=== PATIENT | female | born 1970 | race Two or more races ===

== ENCOUNTER 2024-09-19 10:09 | Outpatient (AMB) | payer OTHER, SELFPAY ==
--- NOTE | 2024-09-19 10:15 | A.OFFVIS_ITS ---
Vital Signs 09/19/24 10:23 Height 5 ft 4 in Weight 144 lb BMI 24.7 BP 140/80 H Blood Pressure Location Lt brachial Pulse 86 Pulse Source Pulse Oximeter Pulse Oximetry (%) 95 Oxygen Delivery Method Room Air Intake Visit Reasons: Arthritis Intake Note: patient presents today for arthritis. Allergies metoprolol Allergy (Mild, Verified 09/19/24 10:19) Hives Environmental Allergy (Mild, Uncoded 12/14/19 17:01) ASTHMA HPI HPI Arthritis: Details: [facility]. She did not follow up with another provider at [facility] after I changed practices and joined [facility]. She was a patient of Dr. Noam mitchell from [facility] who was on prednisone chronically with hydroxychloroquine. She was diagnosed with systemic lupus erythematosus couple of years ago presenting with joint pain with redness in her joints. At the time that I saw her she was on chronic prednisone 7.5 mg daily and reported that she was on prednisone for 5 years. She was also previously treated with prednisone 10 mg daily. She had reported that she had low blood counts in the past. She has history of Raynaud's phenomenon affecting her hands. She had an unprovoked PE in 2018. No history of miscarriages. She is off prednisone and HCQ. She is having pain in joints in hands, wrists, knees and toes. Loosing balance. She has dyspnea and chest pain for a few months. No fevers, pleurisy, rashes, oral ulcers +frothy urine with odour +dry mouth Fingers turn purple then black sometimes. She lays down and covers her self with blanket, which resolves the episode. [facility] Medical History (Updated 09/19/24 @ 11:49 by Paxton Bashir MD) Clavicle fracture Rib fracture Right wrist fracture IBS (irritable bowel syndrome) Fibromyalgia Short gut syndrome Cervical dysplasia Cervical osteoarthritis Restrictive lung disease Pulmonary embolism Recurrent kidney stones Klebsiella pneumoniae sepsis Osteoarthritis Trigeminal neuropathy Migraines Goiter Glaucoma GERD (gastroesophageal reflux disease) Depression Asthma Heart disease shelter systemic steroid user Systemic lupus erythematosus Raynauds syndrome Surgical History (Updated 09/15/24 @ 10:56 by Huyen Montenegro CMA) History of total right knee replacement Physical Exam Const Other: General: Comfortable CVS: RRR Respiratory: clear to auscultation bilaterally. Good respiratory effort Skin: No lesions seen MSK: Tender to palpate bilateral MCPs, PIP, DIPJ with synovitis of left 2nd PIP and right knee (TKR 05/2024). Normal range of motion of upper extremities and lower extremities. Bilateral ankle and MTP tenderness. Assessment & Plan Assessment & Plan (1) Systemic lupus erythematosus: Comment: Polyarthritis is not controlled off of HCQ and low-dose chronic prednisone. She has synovitis left 2nd MCP and chronic swelling and pain of right knee after replacement in May 2024. She is having frothy urine with odor - will rule out UTI before starting immune suppressive therapy. Rheumatology history:SLE dx Dr. Santacruz [facility] presenting with joint pain with history of Raynaud's phenomenon and PE 2017 on warfarin. On chronic low-dose prednisone and hydroxychloroquine in the past. Code(s): M32.9 - Systemic lupus erythematosus, unspecified Category: Medical Qualifiers: Systemic lupus erythematosus type: unspecified Systemic lupus eryth ematosus organ involvement: other Qualified Code(s): M32.19 - Other organ or system involvement in systemic lupus erythematosus Plan: Labs for drug and disease monitoring ordered She will schedule eye exam for HCQ surveillance. Plan to start HCQ after labs and urine studies are back Prednisone course rx will be prescribed after UA/UC negative Follow up with orthopedic surgeon for pain and swelling post replacement. Failed 2nd course of physical therapy. RTC 3 months (2) Other watermelon harvesting supervisor (current) drug therapy: Code(s): Z79.899 - Other senior care (current) drug therapy Category: Medical Plan: See above (3) Raynaud phenomenon: Comment: Controlled with conservative management Code(s): I73.00 - Raynaud's syndrome without gangrene Category: Medical Plan: Conservatively managed (4) Dyspnea: Comment: 2 month history. Asymptomatic at this time. Code(s): R06.00 - Dyspnea, unspecified Category: Medical Qualifiers: Dyspnea type: unspecified Qualified Code(s): R06.00 - Dyspnea, unspecified Plan: Follow up with PCP for evaluation and workup (5) Chest pain: Comment: 2 month history. Asymptomatic at this time. Code(s): R07.9 - Chest pain, unspecified Category: Medical Qualifiers: Chest pain type: unspecified Qualified Code(s): R07.9 - Chest pain, unspecified Plan: Follow-up with PCP for evaluation and workup Orders: Orders Aspartate Amino Transferase Today I73.00 - Raynaud's syndrome without gangrene, M32.9 - Systemic lupus erythematosus, unspecified, Z79.899 - Other watermelon harvesting supervisor (current) drug therapy Creatinine Today I73.00 - Raynaud's syndrome without gangrene, M32.9 - Systemic lupus erythematosus, unspecified, Z79.899 - Other watermelon harvesting supervisor (current) drug therapy C Reactive Protein Today I73.00 - Raynaud's syndrome without gangrene, M32.9 - Systemic lupus erythematosus, unspecified, Z79.899 - Other senior care (current) drug therapy Complement C4 Today I73.00 - Raynaud's syndrome without gangrene, M32.9 - Sy stemic lupus erythematosus, unspecified, Z79.899 - Other watermelon harvesting supervisor (current) drug therapy Protein Creatinine Ratio, Ur Today I73.00 - Raynaud's syndrome without gangrene, M32.9 - Systemic lupus erythematosus, unspecified, Z79.899 - Other senior care (current) drug therapy Anti DNA DS Antibody Today I73.00 - Raynaud's syndrome without gangrene, M32.9 - Systemic lupus erythematosus, unspecified, Z79.899 - Other watermelon harvesting supervisor (current) drug therapy Sm Sm/LINING REPAIRER Antibodies Today I73.00 - Raynaud's syndrome without gangrene, M32.9 - Systemic lupus erythematosus, unspecified, Z79.899 - Other watermelon harvesting supervisor (current) drug therapy T Spot TB Today I73.00 - Raynaud's syndrome without gangrene, M32.19 - Other organ or system involvement in systemic lupus erythematosus, Z79.899 - Other senior care (current) drug therapy Wxweeaf-6-Uektauetm Dehydrogen Today I73.00 - Raynaud's syndrome without gangrene, M32.19 - Other organ or system involvement in systemic lupus erythematosus, Z79.899 - Other watermelon harvesting supervisor (current) drug therapy Complete Blood Count Man Dif Today I73.00 - Raynaud's syndrome without gangrene, M32.9 - Systemic lupus erythematosus, unspecified, Z79.899 - Other senior care (current) drug therapy Alanine Aminotransferase Today I73.00 - Raynaud's syndrome without gangrene, M32.9 - Systemic lupus erythematosus, unspecified, Z79.899 - Other watermelon harvesting supervisor (current) drug therapy Erythrocyte Sedimentation Rate Today I73.00 - Raynaud's syndrome without gangrene, M32.9 - Systemic lupus erythematosus, unspecified, Z79.899 - Other watermelon harvesting supervisor (current) drug therapy Complement C3 Today I73.00 - Raynaud's syndrome without gangrene, M32.9 - Systemic lupus erythematosus, unspecified, Z79.899 - Other senior care (current) drug therapy UA and rflx microscopic Today I73.00 - Raynaud's syndrome without gangrene, M32.9 - Systemic lupus erythematosus, unspecified, Z79.899 - Other watermelon harvesting supervisor (current) drug therapy RACHELE Reflex Titer and Pattern Today I73.00 - Raynaud's syndrome without gangrene, M32.9 - Systemic lupus erythematosus, unspecified, Z79.899 - Other watermelon harvesting supervisor (current) drug therapy Hepatitis B,C Profile Today I73.00 - Raynaud's syndrome without gangrene, M32.19 - Other organ or system involvement in systemic lupus erythematosus, Z79.899 - Other watermelon harvesting supervisor (current) drug therapy Sjogren's Antibodies Today M32.9 - Systemic lupus erythematosus, unspecified Urine Culture Today N39.0 - Urinary tract infection, site not specified Coding Level of Care Code Est Pt Level 4 (00314) Complex EM visit Add On G2211 Diagnoses Systemic lupus erythematosus with other organ involvement, unspecified SLE type M32.19 Systemic lupus erythematosus type: unspecified Systemic lupus erythematosus organ involvement: other Other watermelon harvesting supervisor (current) drug therapy Z79.899 Raynaud phenomenon I73.00 Dyspnea, unspecified type R06.00 Dyspnea type: unspecified Chest pain, unspecified type R07.9 Chest pain type: unspecified
[2024-09-19 10:23] VITALS: BP 140/80; PULSE 86; O2SAT 95; BMI 24.7
--- OUTSIDE RECORDS SUMMARY | 2024-09-19 11:16 | XMS_ITS | Clinical Summary ---
Author Organization [facility] Address [address] [place] [address] Care Team Providers Care Knit Goods Press Hand Name Role Phone Silver Chowdhury MD Primary Care Provider [phone] Allergies Active Allergy Reactions Criticality Noted Date Comments Metoprolol 06/04/2020 Medications Medication Sig Dispensed Refills Start Date End Date Status predniSONE (DELTASONE) tablet 2.5 mg Take 7.5 mg by mouth daily. 0 Active pregabalin (LYRICA) 225 MG capsule Take 225 mg by mouth 2 (two) times a day. 0 Active azaTHIOprine (IMURAN) 50 MG tabletIndications:radha e 1 tab every morning and take 1 1/2 tablets every evening Take 50 mg by mouth daily. 0 Active QUEtiapine fumarate ER (SEROquel XR) 50 MG TB24 24 hr tablet Take 50 mg by mouth 3 (three) times a day. 0 Active magnesium oxide 400 (241.3 Mg) MG TABS tablet Take 400 mg by mouth daily. 0 Active cetirizine (ZyrTEC) 10 MG tablet Take 10 mg by mouth daily. 0 Active Potassium Citrate ER 15 MEQ (1620 MG) TBCR Take 1 tablet by mouth daily. 0 Active warfarin (COUMADIN) 5 MG tablet Take 5 mg by mouth daily. 0 Active potassium chloride ER (K-DUR,KLOR-CON) tablet 10 mEq Take 10 mEq by mouth daily. 0 Active Diclofenac Sodium 1 % GEL Apply 1 g topically 2 (two) times a day. 0 Active omeprazole (PriLOSEC) 20 MG capsule Take 20 mg by mouth daily. 0 Active DULoxetine (CYMBALTA) DR capsule 30 mg Take 30 mg by mouth daily. 0 Active levothyroxine (SYNTHROID, LEVOXYL) tablet 125 mcg Take 125 mcg by mouth every morning on an empty stomach. 0 Active cyanocobalamin (VITAMIN B12) 1000 MCG/ML injection Inject 1,000 mcg into the muscle once. 0 Active SUMAtriptan (IMITREX) 50 MG tablet Take 50 mg by mouth every 2 (two) hours as needed for migraine. 0 Active escitalopram (LEXAPRO) 20 MG tablet Take 20 mg by mouth daily. 0 Active OXcarbazepine (TRILEPTAL) 300 MG tablet Take 300 mg by mouth 2 (two) times a day. 0 Active albuterol (PROVENTIL HFA;VENTOLIN HFA) 108 (90 Base) MCG/ACT inhaler Inhale 2 puffs into the lungs every 4 (four) hours as needed for wheezing. 0 Active fluticasone (FLONASE) 50 MCG/ACT nasal spray spray/apply 1 spray in each nostril daily. 0 Active azelastine (ASTEPRO) 0.15 % nasal spray spray or apply 2 sprays inside Nose daily. 0 Active ketotifen (KP Ketotifen Fumarate) 0.025 % ophthalmic solution Place 1 drop into both eyes daily. 0 Active EPINEPHrine 0.3 MG/0.3ML SOAJ Inject 0.3 mg into the muscle once. 0 Active hydroxychloroquine (PLAQUENIL) 200 MG tablet Take 200 mg by mouth 2 (two) times a day. 0 Active traZODone (DESYREL) 50 MG tablet Take 50 mg by mouth every night at bedtime. 0 Active zolpidem (AMBIEN) 10 MG tablet Take 10 mg by mouth every night at bedtime as needed for sleep. 0 Active Active Problems Problem Noted Date Diagnosed Date Depression 07/19/2019 GERD (gastroesophageal reflux disease) 0 Trigeminal neuropathy 10/26/2018 Right ureteral calculus 07/15/2018 Urinary incontinence in female 09/23/2017 History of pulmonary embolism 08/17/2017 Cervical osteoarthritis 08/26/2011 Lupus anticoagulant disorder 03/14/2010 Overview: Overview: With recurrent DVT; on chronic warfarin 11/2009 The patient continues on Plaquenil, discussed with Dr. Hyman on 08/01/2012, no evidence of maculopathy Fibromyalgia 07/22/2009 IBS (irritable bowel syndrome) 10/30/2008 History of DVT (deep vein thrombosis) 09/03/2008 Overview: Overview: Recurrent; occ pos Anti-cardiolipin Ab; Chronic lifelong anticoagulation recommended by Dr. Jaramillo Systemic lupus erythematosus 03/18/2007 Overview: Overview: Onset probably 2002: arthritis, + RACHELE, + RF, neg CCP, + anti-DNA. 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 Hypothyroidism 02/26/2005 Vitamin B 12 deficiency 02/26/2005 Family History Medical History Relation Name Comments No Sig Med Hx Mother Relation Name Status Comments Father Alive Mother Alive Social History Tobacco Use Types Packs/Day Years Used Date Smoking Tobacco: Former Cigarettes Q uit: 03/29/1996 Smokeless Tobacco: Never Alcohol Use Standard Drinks/Week Comments No 0 (1 standard drink = 0.6 oz pur e alcohol) Sex and Gender Information Value Date Recorded Sex Assigned at Not on file Gender Identity Not on file Sexual Orientation Not on file Last Filed Vital Signs Vital Sign Reading Time Taken Comments Blood Pressure 124/100 06/05/2020 1:38 PM EST Pulse 102 06/05/2020 1:38 PM EST Temperature 36.9 C (98.5 F) 06/05/2020 1:38 PM EST Respiratory Rate - - Oxygen Saturation - - Inhaled Oxygen Concentration - - Weight 86.2 kg (190 lb) 06/05/2020 1:38 PM EST Height 162.6 cm (5' 4 ) 06/05/2020 1:38 PM EST Body Mass Index 32.61 06/05/2020 1:38 PM EST Plan of Treatment Health Maintenance Due Date Last Done Comments Hepatitis B Vaccines (1 of 3 - 3-dose series) 1970 Hepatitis C Screening 1970 COVID-19 Vaccine (#1) 07/28/1975 Depression Screening 1982 Preventative Health Evaluation 1988 Shingrix-Zoster Vaccine (1 of 2) 1989 Cervical Cancer Screening (Pap Smear) 07/28/1991 Pneumococcal Vaccine (2 of 2 - PCV) 10/22/2009 10/22/2008 Colon Cancer Screening (Colonoscopy) 07/28/2015 Breast Cancer Screening (Mammogram) 2020 DTap / Tdap / Td (2 - Td or Tdap) 09/06/2021 09/07/2011 Influenza Vaccine (Season Ended) 2024 01/17/2020, 01/17/2019, 02/17/2017, Additional history exists RSV Ped < 20 months Aged Out No longe r eligible based on patient's age to complete this topic Care Teams Knit Goods Press Hand Relationship Specialty Start Date End Date Silver Chowdhury MD PCP - General Internal Medicine 05/14/20
== END 2024-09-19 10:47 | disposition home or self-care (01) ==
LOC: HO.RHES 10:11
PROVIDERS: PCP Internal Medicine; Visit Provider Internal Medicine Rheumatology
DX: M32.19 Other organ or system involvement in systemic lupus erythematosus (principal); Z79.899 Other long term (current) drug therapy; I73.00 Raynaud's syndrome without gangrene; R06.00 Dyspnea, unspecified; R07.9 Chest pain, unspecified
CPT/HCPCS: 99214; G2211

== ENCOUNTER 2024-09-19 10:09 | Outpatient (REF) | payer OTHER, SELFPAY ==
[2024-09-19 18:58] LABS: Baso%MD 0.5 %; Eos%MD 0.9 %; Hematocrit 39.1 % (37.0-47.0); Hemoglobin 12.9 g/dl (12.0-16.0); IG%MD 1.4 %; Lymph%MD 36.1 %; Mean Corpuscular Hemoglobin 37.8 pg (27.0-33.0); Mean Platelet Volume 10.8 fL (9.4-12.3); Mono%MD 7.5 %; Neut%MD 53.6 %; Platelet Count 238 X10*3/uL (160-400); Red Blood Count 3.41 X10*6/uL (4.20-5.50); Red Cell Distribution Width 17.7 % (11.0-16.0); White Blood Count 5.9 X10*3/uL (4.8-10.8)
[2024-09-19 19:04] LABS: Alanine Aminotransferase 41 U/L (0-31); Aspartate Amino Transferase 36 U/L (5-31); C Reactive Protein < 0.04 mg/dL (< or = 0.50); Estimated Glomerular Filt Rate 50
[2024-09-19 19:10] LABS: Creatinine Urine 135.01 mg/dL; Total Protein Urine Random 14 mg/dL (<12)
[2024-09-19 19:13] LABS: Appearance Urine Cloudy; Color Urine Yellow; Glucose Urine UA Negative (Negative); Leukocyte Esterase Urine Small (1+) (Negative); Nitrite Urine Positive (Negative); Specific Gravity - Urine >= 1.030 (1.005-1.025); UMIC TRIGGER UA YES; Urine Blood Trace (Negative); Urine Ketones Negative (Negative); Urine Protein Negative (Neg-Trace)
[2024-09-19 19:36] LABS: Bacteria Urine 4+ (None Seen); Calcium Oxalate Crystals Urine Present; Hyaline Casts Urine 0-2 /LPF (0-2); RBC Urine 0-2 /HPF (0-2); Squamous Epithelial Cell Urine 0-2 /HPF (0-2); WBC Urine 21-50 /HPF (0-5)
[2024-09-19 20:11] LABS: Erythrocyte Sedimentation Rate 4 MM/HR (0-20)
[2024-09-19 20:49] LABS: Lymphocytes Percent Manual 35 % (20-40); Monocytes Percent Manual 12 % (2-11); Neutrophils Percent Manual 53 % (45-73); Nucleated Red Blood Cells 2 /100WBC (0-0)
[2024-09-19 20:51] LABS: Band Neutrophils Percent 0 % (3-5); Platelet Estimate NORMAL (NORMAL); Platelet Morphology Comment NORMAL; RBC Morphology NORMAL
[2024-09-19 20:52] LABS: Mean Corpuscular Volume 114.7 fL (80.0-98.0)
[2024-09-20 08:05] LABS: HBc Num1 0.09 S/CO (0.00-0.79); HBsAGNum1 0.73 S/CO (0.00-0.99); Hepatitis B Core Antibody Nonreactive (Nonreactive); Hepatitis B Surface Antigen Negative (Negative); ~HepC Num1 0.32 S/CO (0.00-0.79); ~Hepatitis B Surface Antibody NONREACTIVE (Nonreactive); ~Hepatitis C Antibody Nonreactive (Nonreactive)
[2024-09-21 19:54] LABS: TS Negative Control Passed; TS Panel A 0; TS Panel B 0; TS Positive Control Passed; TSpotTB Negative (Negative)
[2024-09-21 22:39] LABS: Anti DNA DS Antibody 1 IU/mL; Antibody to SS-A Antigen 1.1 POS AI (<1.0 NEG); Antibody to SS-B Antigen <1.0 NEG AI (<1.0 NEG); SM/Ribonucleoprotein Ab <1.0 NEG AI (<1.0 NEG); Smith Protein <1.0 NEG AI (<1.0 NEG)
[2024-09-22 11:43] LABS: Anti Nuclear Antibody Screen NEGATIVE (NEGATIVE)
[2024-09-23 16:53] LABS: Glucose-6-Phosphate Dehydrogen 28.8 U/g Hgb (7.0-20.5)
[2024-09-25 18:04] LABS: Complement C3 110 mg/dL (83-193)
== END 2024-09-19 10:10 | disposition home or self-care (01) ==
LOC: HO.HKASLDS 10:09
PROVIDERS: PCP Internal Medicine; Visit Provider Internal Medicine Rheumatology
DX: I73.00 Raynaud's syndrome without gangrene (principal); Z79.899 Other long term (current) drug therapy; M32.19 Other organ or system involvement in systemic lupus erythematosus; N39.0 Urinary tract infection, site not specified; B96.20 Unspecified Escherichia coli [E. coli] as the cause of diseases classified elsewhere
CPT/HCPCS: 36415; 81001; 81003; 82565; 82570; 82955; 84156; 84450; 84460; 85007; 85027; 85652; 86038; 86140; 86160; 86225; 86235; 86481; 86704; 86706; 86803; 87086; 87088; 87186; 87340; 99212

== ENCOUNTER 2024-09-21 13:37 | Outpatient (REF) | payer OTHER, SELFPAY ==
--- NOTE | ~2024-09-21 | XR_ITS ---
CLINICAL HISTORY: M32.19 - Other organ or system involvement in systemic lupus erythematosus Left hand three views Comparison: None provided Findings: No acute fracture or dislocation identified. No acute focal bony abnormality. No radiopaque foreign body noted. Impression: No acute bony abnormality This document has been electronically signed by: Tang Andrea MD on 09/21/2024 20:59:17
--- NOTE | ~2024-09-21 | XR_ITS ---
CLINICAL HISTORY: M32.19 - Other organ or system involvement in systemic lupus erythematosus Right foot three views Comparison: None provided Findings: No acute fracture or dislocation identified. No acute focal bony abnormality. No radiopaque foreign body noted. Impression: No acute bony abnormality This document has been electronically signed by: Tang Andrea MD on 09/21/2024 21:00:32
--- OUTSIDE RECORDS SUMMARY | 2024-09-21 16:30 | XMS_ITS | Clinical Summary ---
Author Organization [facility] Address [address] [place] [address] Care Team Providers Care Optimization Analyst Name Role Phone Silver Chowdhury MD Primary Care Provider [phone] Allergies Active Allergy Reactions Criticality Noted Date [...] age to complete this topic Care Teams Optimization Analyst Relationship Specialty Start Date End Date Silver Chowdhury MD PCP - General Internal Medicine 05/14/20
== END 2024-09-21 13:38 | disposition home or self-care (01) ==
LOC: HO.XRAY 13:37
PROVIDERS: PCP Internal Medicine; Visit Provider Internal Medicine Rheumatology
DX: M32.19 Other organ or system involvement in systemic lupus erythematosus (principal); M79.643 Pain in unspecified hand
CPT/HCPCS: 73130; 73630

== ENCOUNTER → 2024-09-21 13:43 | Outpatient (BNV) | payer OTHER, SELFPAY | PROVIDERS: PCP Internal Medicine; Visit Provider Radiology Diagnostic Radiology | DX: M32.19 Other organ or system involvement in systemic lupus erythematosus (principal) | CPT/HCPCS: 73130; 73630 ==

== ENCOUNTER 2024-12-26 12:36 | Outpatient (AMB) | payer OTHER, SELFPAY ==
--- OUTSIDE RECORDS SUMMARY | 2024-12-08 14:00 | XMS_ITS | Encounter Summary ---
Author Organization [facility] Address [address] [place] [address] Care Team Providers Care Barley Steeper Name Role Phone Marilin Puente MD Primary Care Prov ider Encounter Details Date Type Department Care Team (Latest Contact Info) Description 12/08/2024 2:00 PM EDT Anticoagulation - Warfarin Visit Coumadin [address] [phone] Personal history of DVT (deep vein thrombosis) (Primary Dx); Antiphospholipid antibody with hypercoagulable state (CMS/HCC V24); director equipment (current) use of anticoagulants Social History Tobacco Use Types Packs/Day Years Used Date Smoking Tobacco: Former Cigarettes 0.3 3.7 0 1992 - 03/29/1996 Smokeless Tobacco: Never Alcohol Use Standard Drinks/Week Comments Yes 0 (1 standard drink = 0.6 oz pur e alcohol) Housing Instability Answer Date Recorde d Are you worried that in the next 2 months you may not have stable housing? No 08/01/2024 Food Access & Nutrition Answer Date Rec orded Do you have access to a vari ety of food including fruits and vegetables? Yes 08/01/2024 Health Literacy Answer Date Recorded How often do you need to hav e someone help you when you read instructions, pamphlets, or other written material from your doctor or pharmacy? Never 08/01/2024 Caregiver: How often do you need to have someone help you when you read instructions, pamphlets, or other written material from your doctor or pharmacy? Not on file 08/01/2024 Financial Risk Answer Date Recorded How hard is it for you to pa y for the very basics like food, housing, medical care, and air conditioning / heating? Not very hard 08/01/2024 Transportation Answer Date Recorded Has the lack of transportati on kept you from meetings, work, or from getting things needed for daily living? No Has the lack of transportati on kept you from medical appointments or from getting medications? No 08/01/2024 Social Isolation Answer Date Recorded How often do you feel lonely or isolated from ose around you? Never 08/01/2024 Food Risk Answer Date Recorded Within the past 12 months we worried whether our food would run out before we got money to buy more. Never true 08/01/2024 Within the past 12 months th e food we bought just didn't last and we didn't have money to get more. Never true 08/01/2024 Dependent Care Answer Date Recorded Do you need help finding or paying for care for your loved ones. For example, care transition mgr or elderly care for an older adult? No 08/01/2024 Education Answer Date Recorded Do you think completing more education or training, like finishing a GED, going to college, or learning a trade, would be helpful for you? No 08/01/2024 Employment and Income Answer Date Recor ded During the last four weeks, have you been actively looking for work? No 08/01/2024 Living Situation Answer Date Recorded What is your living situation? Unrecognized valu e 08/01/2024 Comments No Sex and Gender Information Value Date Recorded Sex Assigned at Not on file Legal Sex Female 11:35 PM EST Gender Identity Not on file Sexual Orientation Not on file documented as of this encounter Functional Status * Calculated C-SSRS Risk Score (Lifetime/Recent) Answer Date of Assessment Author No Risk Indicated 12/13/2024 12:11 PM Sushma Rodriguez RN * [place] Suicide Severity Rating Scale (Screener/Recent Self-Report) Question Answer Date of Assessment Author 1. Wish to be (Past 1 Month) No 025 12:11 PM EDT Guihan, Niya, RN 2. Non-Specific Active Suici gloria Thoughts (Past 1 Month) No 12/13/2024 12:11 PM EDT Jud Kessler RN 6. Suicidal Behavior (Lifetime) No 12:11 PM EDT Sushma Kessler, RN documented as of this encounter Plan of Treatment Upcoming Encounters Date Type Department Care Team (Late st Contact Info) Description 12/29/2024 2:00 PM EDT Appointment Radiology Department - [address] [phone] 01/04/2025 1:30 PM EDT Office Visit Adult Medicine [address] [phone] Tyesha Pepper PA [address] [place] [address] 01/17/2025 9:00 AM EDT Office Visit Obstetrics and Gynecology - [address] [phone] Kasandra Jaramillo, [facility] [address] [place] [address] 01/30/2025 2:30 PM EST Office Visit Adult [address] [phone] Marilin Puente MD [address] [place] [address] 04/02/2025 1:45 PM EST Ancillary Procedure Pulmonology - [address] [phone] 04/02/2025 2:30 PM EST Office Visit Pulmonology - [address] [phone] Justus Palacios MD [address] [place] [phone] documented as of this encounter Procedures Procedure Name Priority Date/Time Associated Diagnosis Comments POC PROTIME INR BLOOD Routine 12/08/2024 Personal history of DVT (deep vein thrombosis) Antiphospholipid antibody with hypercoagulable state ([facility] V24) [facility] (current) use of anticoagulants documented in this encounter Results * POC Protime INR Blood (12/08/2024) Lot Number INR POC 4.0 Prothrombin Time POC Exp Date Blood 12/08/2024 Marilin Puente MD POINT OF CARE TEST ENTER/EDIT ORDERABLES Final Result documented in this encounter Visit Diagnoses Diagnosis Personal history of DVT (deep vein thrombosis)- Primary Personal history of venous thrombosis and embolism Antiphospholipid antibody with hypercoagulable state ([facility] V24) [facility] (current) use of anticoagulants Long-term (current) use of anticoagulants documented in this encounter Additional Health Concerns Infection Onset Date Last Indicated Resolved Time ESBL 12/13/2024 12/13/2024 Assessment Noted Time PHQ-9 Depression Total Score: 0 12/05/19 25 9:56 AM EDT documented as of this encounter Care Teams Barley Steeper Relationship Specialty Start Date End Date Marilin Puente MD [address] [place] [phone] PCP - General Internal Medicine 12/25/21 documented as of this encounter
--- NOTE | 2024-12-26 12:59 | MHC.OFFVIS ---
Vital Signs 12/26/24 13:00 Height 5 ft 4 in Weight 153 lb 0.013 oz BMI 26.3 BP 116/80 Blood Pressure Location Rt brachial Position Sitting Pulse 65 Pulse Source Pulse Oximeter Pulse Oximetry (%) 96 Oxygen Delivery Method Room Air Intake Visit Reasons: 3 months Intake Note: patient presents today for arthritis. Accompanied by: Self / Same As Patient Allergies metoprolol Allergy (Mild, Verified 12/26/24 13:00) Hives Environmental Allergy (Mild, Uncoded 12/14/19 17:01) ASTHMA Medication List - Last Reconciled 12/26/24 by Paxton Bashir MD aripiprazole 5 mg PO QAM benzonatate 100 mg PO TID PRN cetirizine 10 mg PO DAILY diclofenac sodium 1% topical TID PRN duloxetine 60 mg PO DAILY escitalopram oxalate 30 mg PO DAILY guaifenesin (Luisa-Tussin) 200 mg PO TID PRN hydroxychloroquine 300 mg PO DAILY hydroxyzine HCl 10 mg PO TID PRN ipratropium-albuterol 20-100 mcg/actuation (Combivent Respimat) 1 puff inhalation QID lansoprazole 30 mg PO DAILY levothyroxine 137 mcg PO DAILY magnesium oxide 400 mg PO DAILY meloxicam 15 mg PO DAILY nitrofurantoin macrocrystal 100 mg PO Q12H omeprazole 20 mg PO DAILY oxcarbazepine 300 mg PO BID Oxygen Home Use As directed prednisone 5 mg PO DAILY prednisone 7.5 mg PO DAILY quetiapine 50 - 100 mg PO BEDTIME topiramate 100 mg PO BEDTIME warfarin mg PO zolpidem 10 mg PO BEDTIME HPI HPI 3 months: Details: She continues to have joint pain in her hands. She was on prednisone at least a month to a month and half ago. She has a prescription for prednisone 5 mg daily as well as 7.5 mg daily. No new joint swelling. 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 Good respiratory effort Skin: No lesions seen MSK: Tender to palpate bilateral MCPs, PIP, interphalangeal joints, elbows and shoulders. No synovitis. Normal range of motion of upper extremities and lower extremities. No tender ankles or MTPs. Assessment & Plan Assessment & Plan (1) Systemic lupus erythematosus: Comment: Polyarthritis is not controlled off of HCQ and low-dose chronic prednisone. She was on low-dose prednisone until a month and a half ago, which resolved her synovitis. Labs reveal serological activity with low C4. We discussed next steps in treatment with DMARD therapy. Discussed importance of restarting hydroxychloroquine to help control lupus disease activity and inflammatory arthritis. She has mild transaminitis on labs. I will restart hydroxychloroquine. If she continues to have elevated liver enzymes, she will need further workup for etiology. We discussed role for prednisone to be only used short term due to side effects with long-term use. At this time since her symptoms are tolerable, I will hold off on restarting low-dose prednisone. Patient agrees. Rheumatology history: SLE dx Dr. Santacruz [facility] presenting with joint pain with history of Raynaud's phenomenon and PE 2018 on warfarin. On chronic low-dose prednisone and hydroxychloroquine in the past. 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 Code(s): M32.9 - Systemic lupus erythematosus, unspecified Category: Medical Qualifiers: Systemic lupus erythematosus type: unspecified Systemic lupus erythematosus organ involvement: other Qualified Code(s): M32.19 - Other organ or system involvement in systemic lupus erythematosus Plan: Labs for drug and disease monitoring ordered She will schedule eye exam for HCQ surveillance. Start hydroxychloroquine 300 mg daily QTC monitoring recommended due to concurrent use of QTC prolonging agents: Hydroxyzine and quetiapine. I recommend PCP follow-up for EKG. She will call office if joint symptoms progress. I will then consider starting combination DMARD therapy. Information on DMARD therapy given to patient. RTC 3 months (2) Other terminal system operator (current) drug therapy: Code(s): Z79.899 - Other senior care (current) drug therapy Category: Medical Plan: See above (3) Raynaud phenomenon: Comment: Controlled with conservative management Code(s): I73.00 - Raynaud's syndrome without gangrene Category: Medical Plan: Conservatively managed Orders: Orders Complete Blood Count Auto Diff Today M32.9 - Systemic lupus erythematosus, unspecified Complement C3 Today M32.9 - Systemic lupus erythematosus, unspecified Creatinine Today M32.9 - Systemic lupus erythematosus, unspecified Anti DNA DS Antibody Today M32.9 - Systemic lupus erythematosus, unspecified C Reactive Protein Today M32.9 - Systemic lupus erythematosus, unspecified Erythrocyte Sedimentation Rate Today M32.9 - Systemic lupus erythematosus, unspecified Protein Creatinine Ratio, Ur Today M32.9 - Systemic lupus erythematosus, unspecified Alanine Aminotransferase Today M32.9 - Systemic lupus erythematosus, unspecified Aspartate Amino Transferase Today M32.9 - Systemic lupus erythematosus, unspecified Complement C4 Today M32.9 - Systemic lupus erythematosus, unspecified UA ClnCatch+Micro w/rflx Cult Today M32.9 - Systemic lupus erythematosus, unspecified Medications: New hydroxychloroquine (Plaquenil) 300 mg (1.5 x 200 mg) PO DAILY 135 tabs 1RF 90 days Coding Level of Care Code Est Pt Level 4 (47315) Complex EM visit Add On G2211 Diagnoses Systemic lupus erythematosus with other organ involvement, unspecified SLE type M32.19 Systemic lupus erythematosus type: unspecified Systemic lupus erythematosus organ involvement: other Other terminal system operator (current) drug therapy Z79.899 Raynaud phenomenon I73.00
[2024-12-26 13:00] VITALS: BP 116/80; PULSE 65; O2SAT 96; BMI 26.3
--- OUTSIDE RECORDS SUMMARY | 2024-12-26 13:44 | XMS_ITS ---
Author Name [facility] Organization Unknown Care Team Organization Name Specialty Phone Email Start Date End Da te [facility] Marilin Cevallos Primary Care 06/30/2022 11/15/[address] [facility] JC IVORY Primary Care 02/03/2022
--- OUTSIDE RECORDS SUMMARY | 2024-12-26 13:44 | XMS_ITS | Clinical Summary ---
Author Organization [facility] Address [address] [place] [address] Care Team Providers Care Airplane Flight Attendant Supervisor Name Role Phone Silver Chowdhury MD Primary Care Provider [phone] Allergies Active Allergy Reactions Criticality Noted Date [...] Td or Tdap) 09/06/2021 09/07/2011 Influenza Vaccine (#1) 2024 0, 01/17/2019, 02/17/2017, Additional history exists RSV Ped < 20 months Aged Out No longe r eligible based on patient's age to complete this topic Care Teams Airplane Flight Attendant Supervisor Relationship Specialty Start Date End Date Silver Chowdhury MD PCP - General Internal Medicine 05/14/20
--- OUTSIDE RECORDS SUMMARY | 2024-12-26 13:45 | XMS_ITS | Encounter Summary ---
Author Organization [employer] Address [address] [facility] [facility] [address] [place] [address] Care Team Providers Care Line Director Name Role Phone Unavailable Primary Care Provider Unavailabl e Reason for Visit * Reason Onset Date Comments case back from lab 02/12/2023 Encounter Details Date Type Department Care Team (Late st Contact Info) Description 02/12/2023 Telephone [facility] [address] [place] [address] Mirlande Vaughn DDS case back from lab Social History Tobacco Use Types Packs/Day Years Used Date Smoking Tobacco: Never Smokeless Tobacco: Never Alcohol Use Standard Drinks/Week Comments Never 0 (1 standard drink = 0.6 oz pur e alcohol) Comments Unknown Sex and Gender Information Value Date Recorded Sex Assigned at Female 01/26/2022 10:25 AM EDT Legal Sex Female 10:25 AM EDT Gender Identity Female 01/26/2022 10:25 AM EDT Sexual Orientation Straight 01/26/2022 10 :25 AM EDT documented as of this encounter Miscellaneous Notes * Telephone Encounter - Mirlande Vaughn DDS - 02/15/2023 4:08 PM EST Case its back, please call pt to make appointment * Telephone Encounter - Maritza Roberts - 02/12/2023 2:32 PM EST Patient wanted to confirm if case is back from lab DR documented in this encounter Plan of Treatment Not on file documented as of this encounter Visit Diagnoses Not on filedocumented in this encounter
--- OUTSIDE RECORDS SUMMARY | 2024-12-26 13:45 | XMS_ITS | Clinical Summary ---
Author Organization [employer] Address [address] [facility] [address] [place] [address] Care Team Providers Care Jackhammer Operator Name Role Phone Unavailable Primary Care Provider Unavailabl e Allergies Active Allergy Reactions Criticality Noted Date Comments Metoprolol 12/17/2010 Other reaction(s): hives, Other (see comments) hives hives Medications levothyroxine (Synthroid, Levoxyl) 137 MCG tablet Take 1 tablet by mouth. Active OXcarbazepine (Trileptal) 300 MG tablet Take 300 mg by mouth. 6 Active ARIPiprazole (Abilify) 5 MG tablet Take 5 mg by mouth. 9 Active busPIRone (Buspar) 5 MG tablet Take 5 mg by mouth 3 times daily. Active cetirizine (ZyrTEC) 10 MG tablet Take 1 tablet by mouth in the morning. 9 Active DULoxetine (Cymbalta) [address] capsule Take 2 capsules by mouth in the morning. 9 Active escitalopram (Lexapro) 20 MG tablet Take 1 tablet by mouth in the morning. 0 Active magnesium oxide 400 MG capsule Take 1 capsule by mouth. Active omeprazole (PriLOSEC) [address] capsule Take 1 capsule by mouth in the morning. 1 Active OXcarbazepine (Trileptal) 300 MG tablet Take 1 tablet by mouth 2 times daily. 3 Active potassium chloride ER (Micro-K) 10 MEQ ER capsule Take 10 mEq by mouth in the morning. 3 Active potassium citrate CR (Urocit-K-15) 15 mEq ER tablet Take 3 tablets by mouth 2 times daily. 1 Active predniSONE (Deltasone) 2.5 MG tablet 3 Active pregabalin (Lyrica) 225 MG capsule Take 1 capsule by mouth 2 times daily. Active QUEtiapine (SEROquel) 50 MG tablet Take 50 mg by mouth 3 times daily. 3 Active Topiramate ER 100 MG capsule sustained-relea se 24 hr Take 1 capsule by mouth. Active zolpidem (Ambien) 10 MG tablet Take 1 tablet by mouth at bedtime. 2 Active omeprazole (PriLOSEC) [address] capsule Take 20 mg by mouth in the morning. 3 Active warfarin (Coumadin) 5 MG tablet Take by mouth. Take as directed per After Visit Summary. Active Sod Fluoride-Potass ium Nitrate 1.1-5 % pasteIndication s:Dental caries Keeler teeth for 2 minutes, morning and night. Spit, do not rinse. Do not eat or drink anything for 30 minutes following brushing. 112 g 3 4 Active amoxicillin (Amoxil) 500 MG capsule Take 4 tabs (2 grams) 1 hour prior to dental procedure 4 capsule 3 4 Active Active Problems Problem Noted Date Diagnosed Date Intraepithelial neoplasia, g rade III, of cervix, vulva and vagina 09/14/2023 Antiphospholipid syndrome 09/14/2023 Overview (09/14/2023): hx LLE DVT, PE. followed by Dr Yousif. coumadin on hold since 07/2008 hx LLE DVT, PE. followed by Dr Yousif. coumadin on hold since 07/2008 Rheumatoid arthritis ([facility]) 09/14/2023 Acute coronary syndrome 11/04/2021 Stage 3a chronic kidney disease ([facility]) 2020 Acute nontraumatic kidney injury 06/18/2020 Benign essential hypertension 06/18/2020 Dyspnea 06/10/2020 Depressive disorder 07/19/2019 Gastroesophageal reflux disease 07/19/2019 Disorder of carotid artery 10/26/2018 Overview (09/14/2023): Distal L cervical internal carotid, MRI Vascular 2014 Trigeminal nerve disorder 10/26/2018 Primary osteoarthritis of right knee 09/26/2018 Calculus of ureter 07/15/2018 Klebsiella pneumoniae sepsis ([facility]) 9 Overview (09/14/2023): Admitted [facility] 06/26/2018, urinary origin Recurrent kidney stones 07/15/2018 Sepsis due to anaerobes ([facility]) 07/15/2018 Overview (09/14/2023): Admitted [facility] 06/26/2018, urinary origin Incontinence of feces 09/23/2017 Urinary incontinence 09/23/2017 History of pulmonary embolism 08/17/2017 Perennial allergic conjunctivitis of both eyes 0 05/31/2017 Perennial allergic rhinitis 05/31/2017 Overview (09/14/2023): Allergy shots 2019 Allergy shots 2019 Restrictive lung disease 08/26/2016 H/O: hysterectomy 04/20/2013 Overview (09/14/2023): Cervical dysplasia, postop course complicated by PE nd multiple enterostomies with short gut syndrome. S/P hysterectomy 04/20/2013 Overview (09/14/2023): Cervical dysplasia, postop course complicated by PE nd multiple enterostomies with short gut syndrome. Spondylosis of cervical spine 08/26/2011 Cervical dysplasia 12/17/2010 Overview (09/14/2023): Status post hysterectomy 10/13/2010 Status post hysterectomy 10/13/2010 SETH II in cone biopsy- Needs Q3 yrs pap of cuff until 2035 Short bowel syndrome 12/17/2010 Short gut syndrome 12/17/2010 Lupus anticoagulant disorder 03/14/2010 Overview (09/14/2023): With recurrent DVT; on chronic warfarin 11/2009 The patient continues on Plaquenil, discussed with Dr. Hyman on 08/01/2012, no evidence of maculopathy With recurrent DVT; on chronic warfarin 11/2009 The patient continues on Plaquenil, discussed with Dr. Hyman on 08/01/2012, no evidence of maculopathy Overview: With recurrent DVT; on chronic warfarin 11/2009 The patient continues on Plaquenil, discussed with Dr. Hyman on 08/01/2012, no evidence of maculopathy With recurrent DVT; on chronic warfarin 11/2009 The patient continues on Plaquenil, discussed with Dr. Hyman on 08/01/2012, no evidence of maculopathy Fibromyalgia 07/22/2009 Irritable bowel syndrome 10/30/2008 Deep venous thrombosis 09/03/2008 Overview (09/14/2023): Recurrent; occ pos Anti-cardiolipin Ab; Chronic lifelong anticoagulation recommended by Dr. Jaramillo Recurrent; occ pos Anti-cardiolipin Ab; Chronic lifelong anticoagulation recommended by Dr. Jaramillo History of DVT (deep vein thrombosis) 09/03/2008 Overview (09/14/2023): Overview: Recurrent; occ pos Anti-cardiolipin Ab; Chronic lifelong anticoagulation recommended by Dr. Jaramillo Recurrent; occ pos Anti-cardiolipin Ab; Chronic lifelong anticoagulation recommended by Dr. Jaramillo Last Assessment & Plan: The patient has a history of a deep vein thrombosis/pulmonary embolism that occurred more than 5 years ago. The patient has been on chronic anticoagulation therapy with warfarin. The patient states that her INR has been well controlled. Would recommend to continue her current anticoagulant therapy. Systemic lupus erythematosus (CMS/HCC) 7 Overview (09/14/2023): Onset probably 2002: arthritis, + RACHELE, + RF, neg CCP, + anti-DNA. + IgM anticardiolipin Ab - Hx of PE July 2007; On chronic hydroxychloroquine, prednisone and azsathioprine: eye exam [place] July 2012, 09/09, 11/10, 11/11, 12/16 Onset probably 2002: arthritis, + RACHELE, + RF, neg CCP, + anti-DNA. + IgM anticardiolipin Ab - Hx of PE July 2007; On chronic hydroxychloroquine, prednisone and azsathioprine: eye exam [place] July 2012, 09/09, 11/10, 11/11, 12/16 Overview: Onset probably 2002: arthritis, + RACHELE, + RF, neg CCP, + anti-DNA. + IgM anticardiolipin Ab - Hx of PE July 2007; On chronic hydroxychloroquine, prednisone and azsathioprine: eye exam [place] July 2012, 09/09, 11/10, 11/11, 12/16 Onset probably 2002: arthritis, + RACHELE, + RF, neg CCP, + anti-DNA. + IgM anticardiolipin Ab - Hx of PE July 2007; On chronic hydroxychloroquine, prednisone and azsathioprine: eye exam [place] July 2012, 09/09, 11/10, 11/11, 12/16 Asthma 09/02/2005 Cobalamin deficiency 02/26/2005 Glaucoma associated with ocular disorder 005 Goiter 02/26/2005 Overview (09/14/2023): Biopsy consistent w/ Js's thyroiditis 07/05/2002. Biopsy consistent w/ Js's thyroiditis 07/05/2002. Hypothyroidism 02/26/2005 Migraine headache 02/26/2005 Social History Tobacco Use Types Packs/Day Years Used Date Smoking Tobacco: Never Smokeless Tobacco: Never Tobacco Cessation:Counseling Given: Not Answered Alcohol Use Standard Drinks/Week Comments Never 0 (1 standard drink = 0.6 oz pur e alcohol) Comments Unknown Sex and Gender Information Value Date Recorded Sex Assigned at Female 01/26/2022 10:25 AM EDT Legal Sex Female 10:25 AM EDT Gender Identity Female 01/26/2022 10:25 AM EDT Sexual Orientation Straight 01/26/2022 10 :25 AM EDT Last Filed Vital Signs Vital Sign Reading Time Taken Comments Blood Pressure 128/70 10/08/2023 1:39 PM EDT Pulse 65 08/24/2023 2:57 PM EDT Temperature - - Respiratory Rate - - Oxygen Saturation - - Inhaled Oxygen Concentration - - Weight - - Height - - Body Mass Index - - Plan of Treatment Health Maintenance Due Date Last Done Comments CT Colonography 1970 Colonoscopy 1970 Colorectal Cancer Screening 1970 Dental Oral Exam 1970 Depression Screening 1970 FIT DNA/Cologuard 1970 FIT 1970 FOBT 1970 Lipid Panel 1970 SDOH Screening 1970 Sigmoidoscopy 1970 Disability Screening 1970 Derm Melanoma Skin Check 01/27/1971 Alcohol/Substance Use Screening 1982 Hepatitis C Screening 1988 Hepatitis B Vaccines (1 of 3 - 19+ 3-dose series) 1989 Pap Smear 07/28/1991 Cervical Cancer Screening 2000 HPV/Cotest 2000 Pneumococcal Vaccine: 50+ Years (2 of 2 - PCV) 10/22/2009 10/22/2008 Mammogram 2010 Zoster Vaccines (1 of 2) 2020 Dental Prophylaxis 02/25/2024 08/24/2023 Dental X-Ray: Bitewings 08/24/2024 08/24/2023 Tobacco Screening 10/07/2024 10/08/2023 COVID-19 Vaccine (3 - season) 2024 05/07/2021, 03/13/2021 Influenza Vaccine (#1) 2024 , 12/14/2022, 02/05/2022, Additional history exists Dental X-Ray: Full Mouth 08/24/2026 08/24/2023 DTaP/Tdap/Td Vaccines (3 - Td or Tdap) 04/18/2031 04/18/2021, 09/07/2011, 04/04/2002 RSV Patients and Patients Aged 60 years or older (1 - 1-dose 75+ series) 2045 HIV Screening Completed 09/17/2023, 08/05/2023 HIB Vaccines Aged Out No longer eligi ble based on patient's age to complete this topic HPV Vaccines Aged Out No longer eligi ble based on patient's age to complete this topic Hepatitis A Vaccines Aged Out No long er eligible based on patient's age to complete this topic IPV Vaccines Aged Out No longer eligi ble based on patient's age to complete this topic Meningococcal B Vaccine Aged Out No l onger eligible based on patient's age to complete this topic Meningococcal Vaccine Aged Out No romina lelo eligible based on patient's age to complete this topic RSV under 20 months Aged Out No longe r eligible based on patient's age to complete this topic Rotavirus Vaccines Aged Out No longer eligible based on patient's age to complete this topic Procedures Procedure Name Priority Date/Time Associated Diagnosis Comments PROPHYLAXIS - ADULT Routine 08/24/2023 3 :00 PM EDT INTRAORAL - COMPLETE SERIES OF RADIOGRAPHIC IMAGES Routine 08/24/2023 3:00 PM EDT from Last 3 Months or Most Recently Relevant to Health Maintenance Insurance [facility] MEDICAID STAND ADULT
--- OUTSIDE RECORDS SUMMARY | 2024-12-26 13:45 | XMS_ITS | Clinical Summary ---
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 coli ESBL Ciprofloxacin RODOLFO >=4 ug/ml: Resistant Escherichia coli ESBL Levofloxacin RODOLFO >=8 ug/ml: Resistant Escherichia coli ESBL Nitrofurantoin RODOLFO <=16 ug/ml: Susceptible Escherichia coli ESBL Trimethoprim/Sulfa methoxazol e RODOLFO >=320 ug/ml: Resistant us Tong Connell MD LAB MICROBIOLOGY - G ENERAL ORDERABLES Final Result [facility] [address] [place] [address], [place] [phone] * (ABNORMAL) Urinalysis with reflex microscopic (12/13/2024 3:37 PM EDT) [facility] Urine 1.024 1.003 - 1.030 LAB URINALYSIS - AUTOMATED METHOD 12/13/2024 4:01 PM EDT [facility] pH, Urine 5.5 5.0 - 8.0 pH LAB URINALYSIS - AUTOMATED METHOD 12/13/2024 4:01 PM [facility] Leukocytes, Urine Large(A) Negative LAB URINALYSIS - AUTOMATED METHOD 12/13/2024 4:01 PM [facility] Nitrite, Urine Positive(A) Negative LAB URINALYSIS - AUTOMATED METHOD 12/13/2024 4:01 PM [facility] Protein, Urine 100(A) <=Trace mg/dL LAB URINALYSIS - AUTOMATED METHOD 12/13/2024 4:01 PM [facility] Glucose, Urine Negative Negative mg/dL LAB URINALYSIS - AUTOMATED METHOD 12/13/2024 4:01 PM [facility] Ketones, Urine Trace(A) Negative mg/dL LAB URINALYSIS - AUTOMATED METHOD 12/13/2024 4:01 PM [facility] Urobilinogen , Urine 1.0 0.2 - 1.0 mg/dL LAB URINALYSIS - AUTOMATED METHOD 12/13/2024 4:01 PM [facility] Bilirubin, Urine Negative Negative LAB URINALYSIS - AUTOMATED METHOD 12/13/2024 4:01 PM [facility] Blood, Urine Large(A) Negative LAB URINALYSIS - AUTOMATED METHOD 12/13/2024 4:01 PM [facility] RBC, Urine 369.2(H) 0 - 4 /HPF LAB URINALYSIS - AUTOMATED METHOD 12/13/2024 4:01 PM [facility] WBC, Urine 1,219.3(H) 0 - 4 /HPF LAB URINALYSIS - AUTOMATED METHOD 12/13/2024 4:01 PM [facility] Squamous Epithelial, Urine 13 0 - 60 /LPF LAB URINALYSIS - AUTOMATED METHOD 12/13/2024 4:01 PM [facility] Bacteria, Urine Many(A) Negative /HPF LAB URINALYSIS - AUTOMATED METHOD 12/13/2024 4:01 PM EDT [facility] Hyaline Casts, Urine 2.3 0 - 3 /LPF LAB URINALYSIS - AUTOMATED METHOD 12/13/2024 4:01 PM EDT [facility] Urine Urine specimen obtained by clean catch procedure / Unknown Non-blood Collection / Unknown 12/13/2024 3:37 PM EDT 12/13/2024 3:44 PM EDT us Tong oCnnell MD LAB URINE ORDERABLES Final Result [facility] [address] [place] [address], [place] [phone] * Valero urine culture tube (12/13/2024 3:36 PM EDT) Extra Tube Hold for add-ons. 12/13/2024 5:01 PM EDT [facility] Comment:Auto resulted. Urine Urine specimen obtained by clean catch procedure / Unknown Non-blood Collection / Unknown 12/13/2024 3:36 PM EDT 12/13/2024 3:46 PM EDT us Tong Connell MD LAB URINE ORDERABLES Final Result [facility] [address] [place] [address], [place] [phone] * Trichomonas vaginalis antigen (12/13/2024 3:32 PM EDT) Trichomonas vaginalis Negative Negative 12/13/2024 4:10 PM EDT [facility] Swab Vaginal structure / Unknown Non-blood Collection / Unknown 12/13/2024 3:32 PM EDT 12/13/2024 3:47 PM EDT us Tong Connell MD LAB MICROBIOLOGY - G ENERAL ORDERABLES Final Result [facility] [address] [place] [address], * (ABNORMAL) Chlamydia trachomatis and Neisseria gonorrhoeae molecular study (12/13/2024 3:32 PM EDT) Pathologist [facility] Neisseria gonorrhoeae PCR Positive(A) Negative LAB MOLECULAR DIAGNOSTICS METHOD 12/15/2024 1:34 PM EDT [facility] Chlamydia trachomatis PCR Negative Negative LAB MOLECULAR DIAGNOSTICS METHOD 12/15/2024 1:34 PM EDT [facility] Swab Vaginal structure / Unknown Non-blood Collection / Unknown 12/13/2024 3:32 PM EDT 12/13/2024 3:47 PM EDT Tong Connell MD LAB MICROBIOLOGY - G ENERAL ORDERABLES Final Result Performing Organization Address [facility]/ZIP Co de Phone Number [facility] [address] [place] [address], * Wet prep, genital (12/13/2024 3:32 PM EDT) Pathologist [facility] Clue Cells, Wet Prep Negative Negative 12/13/2024 3:58 PM EDT [facility] Yeast, Wet Prep Negative Negative 12/13/2024 3:58 PM EDT [facility] Trichomonas, Wet Prep Indeterminate Negative 12/13/2024 3:58 PM EDT [facility] Comment:Refer to Trichomonas antigen. Swab Vaginal structure / Unknown Non-blood Collection / Unknown 12/13/2024 3:32 PM EDT 12/13/2024 3:47 PM EDT Tong Connell MD LAB MICROBIOLOGY - G ENERAL ORDERABLES Final Result [facility] [address] [place] [address], * (ABNORMAL) CBC auto differential (12/13/2024 1:33 PM EDT) [facility] Signature WBC 8.0 4.8 - 10.8 K/mcL LAB HEMETOLOGY METHOD 12/13/2024 2:05 PM EDT [facility] RBC 2.70(L) 3.80 - 4.80 M/mcL LAB HEMETOLOGY METHOD 12/13/2024 2:05 PM EDT [facility] Hemoglobin 11.2(L) 11.5 - 16.0 g/dL LAB HEMETOLOGY METHOD 12/13/2024 2:05 PM EDT [facility] Hematocrit 34.3(L) 35.0 - 47.0 % LAB HEMETOLOGY METHOD 12/13/2024 2:05 PM EDT [facility] MCV 125.6(H) 79.0 - 98.0 FL LAB HEMETOLOGY METHOD 12/13/2024 2:05 PM EDT [facility] MCH 41.0(H) 27.0 - 32.0 pcg LAB HEMETOLOGY METHOD 12/13/2024 2:05 PM EDT [facility] MCHC 32.7 32.0 - 37.0 g/dL LAB HEMETOLOGY METHOD 12/13/2024 2:05 PM EDT [facility] RDW 14.1 11.0 - 15.0 % LAB HEMETOLOGY METHOD 12/13/2024 2:05 PM EDT [facility] Platelets 249 130 - 400 K/mcL LAB HEMETOLOGY METHOD 12/13/2024 2:05 PM EDT [facility] MPV 10.2 7.0 - 11.0 FL LAB HEMETOLOGY METHOD 12/13/2024 2:05 PM [facility] NRBC 0.0 <1.0 % LAB HEMETOLOGY METHOD 12/13/2024 2:05 PM [facility] NRBC Absolute 0.00 <0.10 K/mcL LAB HEMETOLOGY METHOD 12/13/2024 2:05 PM [facility] Neutrophils Relative 66.0 % LAB HEMETOLOGY METHOD 12/13/2024 2:05 PM [facility] Lymphocytes Relative 23.7 % LAB HEMETOLOGY METHOD 12/13/2024 2:05 PM [facility] Monocytes Relative 5.2 % LAB HEMETOLOGY METHOD 12/13/2024 2:05 PM [facility] Eosinophils Relative 3.8 % LAB HEMETOLOGY METHOD 12/13/2024 2:05 PM [facility] Basophils Relative 0.9 % LAB HEMETOLOGY METHOD 12/13/2024 2:05 PM [facility] Immature Granulocytes Relative 0.4 % LAB HEMETOLOGY METHOD 12/13/2024 2:05 PM [facility] Neutrophils Absolute 5.20 1.50 - 7.00 K/mcL LAB HEMETOLOGY METHOD 12/13/2024 2:05 PM [facility] Lymphocytes Absolute 1.87 1.00 - 5.00 K/mcL LAB HEMETOLOGY METHOD 12/13/2024 2:05 PM [facility] Monocytes Absolute 0.41 0.20 - 1.00 K/mcL LAB HEMETOLOGY METHOD 12/13/2024 2:05 PM [facility] Eosinophils Absolute 0.30 0.00 - 0.50 K/mcL LAB HEMETOLOGY METHOD 12/13/2024 2:05 PM [facility] Basophils Absolute 0.07 0.00 - 0.20 K/mcL LAB HEMETOLOGY METHOD 12/13/2024 2:05 PM EDT [facility] Immature Granulocytes Absolute 0.03 0.00 - 0.03 K/mcL LAB HEMETOLOGY METHOD 12/13/2024 2:05 PM EDT [facility] Blood Venous blood specimen / Unknown Venipuncture / Unknown 12/13/2024 1:33 PM EDT 12/13/2024 1:44 PM EDT us Bessy Rojo MD LAB BLOOD ORDERABLES Final Resul t [facility] [address] [place] [address], [place] [phone] * Hepatic function panel (12/13/2024 1:33 PM EDT) Total Protein 6.7 6.0 - 8.0 g/dL LAB CHEMISTRY METHOD 12/13/2024 7:26 PM [facility] Albumin 3.2 3.2 - 5.0 g/dL LAB CHEMISTRY METHOD 12/13/2024 7:26 PM [facility] Total Bilirubin 0.3 0.0 - 1.4 mg/dL LAB CHEMISTRY METHOD 12/13/2024 7:26 PM [facility] Bilirubin, Direct <0.1 0.0 - 0.3 mg/dL LAB CHEMISTRY METHOD 12/13/2024 7:26 PM [facility] Bilirubin, Indirect LAB CHEMISTRY METHOD 12/13/2024 7:26 PM [facility] Comment:Unable to calculate Indirect Bilirubin. ALT (SGPT) 28 10 - 60 unit/L LAB CHEMISTRY METHOD 12/13/2024 7:26 PM [facility] AST (SGOT) 16 10 - 42 unit/L LAB CHEMISTRY METHOD 12/13/2024 7:26 PM [facility] Alkaline Phosphatase 82 42 - 121 unit/L LAB CHEMISTRY METHOD 12/13/2024 7:26 PM T [facility] Blood Venous blood specimen / Unknown Venipuncture / Unknown 12/13/2024 1:33 PM EDT 12/13/2024 1:44 PM EDT us Tong Connell MD LAB BLOOD ORDERABLES Final Result [facility] [address] [place] [address], [place] [phone] * (ABNORMAL) Basic metabolic panel (12/13/2024 1:33 PM EDT) Sodium 140 133 - 145 mmol/L LAB CHEMISTRY METHOD 12/13/2024 2:26 PM [facility] Potassium 4.8 3.5 - 5.5 mmol/L LAB CHEMISTRY METHOD 12/13/2024 2:26 PM [facility] Chloride 111(H) 96 - 110 mmol/L LAB CHEMISTRY METHOD 12/13/2024 2:26 PM [facility] CO2 26 21 - 32 mmol/L LAB CHEMISTRY METHOD 12/13/2024 2:26 PM [facility] Anion Gap 3 3 - 11 LAB CHEMISTRY METHOD 12/13/2024 2:26 PM [facility] Glucose 73 70 - 100 mg/dL LAB CHEMISTRY METHOD 12/13/2024 2:26 PM [facility] BUN 12 5 - 25 mg/dL LAB CHEMISTRY METHOD 12/13/2024 2:26 PM [facility] Creatinine 0.93 0.50 - 1.10 mg/dL LAB CHEMISTRY METHOD 12/13/2024 2:26 PM [facility] eGFR 73 >=60 mL/min/1. 73m2 LAB CHEMISTRY METHOD 12/13/2024 2:26 PM [facility] Comment:Calculation based on the Chronic Kidney Disease Epidemiology Collaboration (CKD-EPI) equation refit without adjustment for race. BUN/Creatinine Ratio 12.9 LAB CHEMISTRY METHOD 12/13/2024 2:26 PM EDT [facility] Calcium 9.1 8.5 - 10.5 mg/dL LAB CHEMISTRY METHOD 12/13/2024 2:26 PM EDT [facility] Blood Venous blood specimen / Unknown Venipuncture / Unknown 12/13/2024 1:33 PM EDT 12/13/2024 1:44 PM EDT us Bessy Rojo MD LAB BLOOD ORDERABLES Final Resul t [facility] [address] [place] [address], [place] [phone] * POC Protime INR Blood (12/08/2024) Only the most recent of6 resultswithin the time period is included. Lot Number INR POC 4.0 Prothrombin Time POC Exp Date Blood 12/08/2024 us Marilin Puente MD POINT OF CARE TEST ENTER/EDIT ORDERABLES Final Result * Vascular US duplex lower extremity venous bilateral (12/05/2024 11:58 AM EDT) Anatomical Region Laterality Modality Vascular, Abdomen Ultrasound 12/05/2024 12:0 5 PM EDT Impressions 12/05/2024 12:15 PM EDT No evidence of deep venous thrombosis in the lower extremities. POS - [id number] -------- FINAL REPORT -------- Dictated By: Mirian Mckeon Dictated Date: 12/05/2024 12:05 ET Assigned Physician: Mirian Mckeon Reviewed and Electronically Signed By: Mirian Mckeon Signed Date: 12/05/2024 12:15 ET Workstation ID: [id number] Transcribed By: Self Edit Transcribed Date: 12/05/2024 12:05 ET Narrative 12/05/2024 12:15 PM EDT EXAM: Bilateral lower extremity venous Doppler ultrasound. HISTORY: Bilateral calf, ankle, and foot edema. Long-term use of anticoagulation for history of deep venous thrombosis. COMPARISON: 10/28/2018 and 11/24/2016 FINDINGS: Duplex Doppler scanning of the deep venous system of the lower extremities is performed. Scanning is performed from the proximal common femoral veins and greater saphenous confluence through the popliteal veins. All veins of the deep venous system are normally compressible. Normal Doppler flow is demonstrated within them. Augmentation maneuvers are normal. Calf veins are normally compressible. No popliteal cyst on either side. Procedure Note Mirian Mckeon MD - 12/05/2024 EXAM: Bilateral lower extremity venous Doppler ultrasound. HISTORY: Bilateral calf, ankle, and foot edema. Long-term use ofanticoagulation for history of deep venous thrombosis. COMPARISON: 10/28/2018 and 11/24/2016 FINDINGS: Duplex Doppler scanning of the deep venous system of the lower extremitiesis performed. Scanning is performed from the proximal common femoralveins and greater saphenous confluence through the popliteal veins. All veins of the deep venous system are normally compressible. NormalDoppler flow is demonstrated within them. Augmentation maneuvers arenormal. Calf veins are normally compressible. No popliteal cyst on either side. IMPRESSION: No evidence of deep venous thrombosis in the lower extremities. POS - [id number] -------- FINAL REPORT -------- Dictated By: Mirian Mckeon Dictated Date: 12/05/2024 12:05 ET Assigned Physician: Mirian Mckeon Reviewed and Electronically Signed By: Mirian Mckeon Signed Date: 12/05/2024 12:15 ET Workstation ID: [id number] Transcribed By: Self Edit Transcribed Date: 12/05/2024 12:05 ET [facility] Final Re sult * Transthoracic echocardiogram (TTE) complete- [facility] (11/06/2024 8:08 AM EDT) Anatomical Region Laterality Modality Ultrasound us Historical Provider MD [facility] ECHO PROCEDURES Final Result * External Stress Test (10/31/2024 2:45 PM EDT) Anatomical Region Laterality Modality Nuclear Medicine us Historical Provider MD [facility] STRESS PROCEDURES Thalia jimenez Result * SCREENING MAMMOGRAPHY BI 2-VIEW BREAST INC CAD (12/17/2023 3:54 PM EDT) Anatomical Region Laterality Modality Radiographic Beulah ging 08/05/2023 11:1 1 AM EDT Narrative 12/20/2023 1:47 PM EDT This is a summary report. The complete report is available in the patient's medical record. If you cannot access the medical record, please contact the sending organization for a detailed fax or copy. Full field digital screening tomosynthesis mammography, reviewed with CAD and compared to previous. The breasts are composed of fatty and fibroglandular tissue. No suspicious mass, architectural distortion or suspicious calcifications are identified. IMPRESSION: : No mammographic evidence of malignancy. BIRADS 1-Negative; N. Breast density: The breasts have scattered areas of fibroglandular density. 5 year breast cancer risk assessment 0.5 % Lifetime breast cancer risk assessment 4.3 % Breast cancer risk category Low (<15%) Location: [facility], [address] [place] [address], [address], [phone] Procedure Note Joycelyn Perez MD - 01/12/2024 This is a summary report. The complete report is available in thepatient's medical record. If you cannot access the medical record, pleasecontact the sending organization for a detailed fax or copy. Full field digital screening tomosynthesis mammography, reviewed with CADand compared to previous. The breasts are composed of fatty andfibroglandular tissue. No suspicious mass, architectural distortion orsuspicious calcifications are identified. IMPRESSION: : No mammographic evidence of malignancy. BIRADS 1-Negative; N. Breast density: The breasts have scattered areas of fibroglandulardensity. 5 year breast cancer risk assessment 0.5 % Lifetime breast cancer risk assessment 4.3 % Breast cancer risk category Low (<15%) Location: [facility], [address] [place] [address], [address], [phone] Result [facility] Mylene Rodriguez CNM IMG XR PROCEDURES Final Result * HIV Screening (09/17/2023) HIV Screening Abstracted Historical Provider HEALTH MAINTENANCE Final Result * Hepatitis C Screening (09/17/2023) Pathologist [facility] Hepatitis C Screening Abstracted Historical Provider HEALTH MAINTENANCE Final Result * Cervical Cancer Screening: HPV (09/07/2023) Pathologist [facility] Cervical Cancer Screening: HPV Positive, Abstracted Result [facility] Historical Provider HEALTH MAINTENANCE Final Result * Depression Screening (09/07/2023) Pathologist [facility] Depression Screening Abstracted Result [facility] Historical Provider MD HEALTH MAINTENANCE Final Result * (ABNORMAL) Lipid panel (01/18/2020) Pathologist [facility] LDL/HDL Ratio 4 0 - 4 Triglycerides 222(A) 0 - 150 mg/dL Cholesterol 135 0 - 200 mg/dL HDL 39(A) >=40 mg/dL LDL Cholesterol 52 0 - 100 mg/dL Blood Venous blood specimen / Unknown Result [facility] Historical Provider LAB BLOOD ORDERABLES Thalia l Result from Last 3 Months or Most Recently Relevant to Health Maintenance Additional Health Concerns Infection Onset Date Last Indicated ESBL 12/13/2024 12/13/2024 Insurance [facility] [facility] [employer] Care Teams Senior Electronics Design Engineer Relationship Specialty Start Date End Date Marilin Puente MD [address] [place] [phone] PCP - General Internal Medicine 12/25/21
--- OUTSIDE RECORDS SUMMARY | 2024-12-26 13:45 | XMS_ITS | Encounter Summary ---
Author Organization [facility] Address [address] [place] [address] Care Team Providers Care Professional Programmer Analyst Name Role Phone Marilin Puente MD Primary Care Prov ider Reason for Visit * Reason Onset Date Comments Epistaxis (Nose Bleed) 11/29/2024 Encounter Details Date Type Department Care Team (Late st Contact Info) Description 11/29/2024 Telephone Adult Medicine [facility] [address] [place] [phone] Marilin Puente MD [address] [place], [place] Social History Tobacco Use Types Packs/Day Years [...] care for your loved ones. For example, early childhood special educator or elderly care for an older adult? [...] on file documented as of this encounter Progress Notes * Tristen Josue RN - 11/29/2024 12:22 PM EDT Called and spoke with pt. Pt on coumadin. On 11/08 was low 1.4. increase coumadin and added lovenox.Pt c/o nose bleed on and off since last night. Pt sts holding head back now if puts head up nose with start to bleed. Advised to go to er for evaluation. Fyi to coumadin clinic as has been trying to get a hold of pt to check inr missed last two appts. * Miles David - 11/29/2024 11:58 AM EDT Patient reporting on and off nose bleeds beginning early this morning. Does not know the cause. Does not report any other symptoms. Looking to speak to nurse. documented in this encounter Plan of Treatment Upcoming Encounters Date Type Department Care Team (Late st Contact Info) Description 12/29/2024 2:00 PM EDT Appointment Radiology Department - [address] [phone] 01/04/2025 1:30 PM EDT Office Visit Adult [address] [phone] Tyesha Pepper PA [address] [place] [address] 01/17/2025 9:00 AM EDT Office Visit Obstetrics and Gynecology - [address] [phone] Kasandra Jaramillo, NISHNAT [address] [place] [address] 01/30/2025 2:30 PM EST Office Visit [address] [phone] Marilin Puente MD [address] [place] [address] 04/02/2025 1:45 PM EST Ancillary Procedure Pulmonology - [place] [address] [place] [phone] 04/02/2025 2:30 PM EST Office Visit Pulmonology - [place] [address] [facility] [address] [place] [phone] Justus Palacios MD [address] [facility] [address] [place] [address] documented as of this encounter Visit Diagnoses Not on filedocumented in this encounter Additional Health Concerns Infection Onset Date Last Indicated Resolved Time ESBL 12/13/2024 12/13/2024 documented as of this encounter Care Teams Professional Programmer Analyst Relationship Specialty Start Date End Date Marilin Puente MD [address] [place] [phone] PCP - General Internal Medicine 12/25/21 documented as of this encounter
--- OUTSIDE RECORDS SUMMARY | 2024-12-26 13:45 | XMS_ITS | Encounter Summary ---
Author Organization [employer] Address [address] [facility] [address] [place] [address] Care Team Providers Care Spa Manager Name Role Phone Unavailable Primary Care Provider Unavailabl e Reason for Visit * Reason Onset Date Comments case back from lab? 01/13/2023 Encounter Details Date Type Department Care Team (Late st Contact Info) Description 01/13/2023 Telephone [facility] [address] [place] [address] Mirlande Vaughn DDS case back from lab? Social History Tobacco Use Types Packs/Day Years [...] encounter Miscellaneous Notes * Telephone Encounter - Maritza Roberts - 01/13/2023 10:01 AM EDT Patient called in to confirm if crown case is back from lab. If so pls reach out to patient for scheduling DR documented in this encounter Plan of Treatment Not on file documented as of this encounter Visit Diagnoses Not on filedocumented in this encounter
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
== END 2024-12-26 13:34 | disposition home or self-care (01) ==
LOC: HO.RHES 12:37
PROVIDERS: PCP Internal Medicine; Visit Provider Internal Medicine Rheumatology
DX: M32.19 Other organ or system involvement in systemic lupus erythematosus (principal); Z79.899 Other long term (current) drug therapy; I73.00 Raynaud's syndrome without gangrene
CPT/HCPCS: 99214

== ENCOUNTER 2024-12-26 12:36 | Outpatient (REF) | payer OTHER, SELFPAY ==
[2024-12-26 18:00] LABS: MANUAL DIFF FLAG NO
[2024-12-26 18:16] LABS: Hematocrit 35.7 % (37.0-47.0); Hemoglobin 11.8 g/dl (12.0-16.0); Imm Gran Abs Auto 0.01 X10*3/uL (0.00-0.03); Imm Gran Pct Auto 0.2 % (0.0-0.4); Lymphocytes Absolute Auto 2.1 X10*3/uL (1.2-4.9); Mean Corpuscular HGB Conc 33.1 g/dl (31.0-35.0); Mean Corpuscular Hemoglobin 40.7 pg (27.0-33.0); NRBC Abs Auto 0.020 X10*3/uL (0.0-0.012); NRBC Pct Auto 0.3 /100WBC (0.0-0.2); Platelet Count 257 X10*3/uL (160-400); Red Blood Count 2.90 X10*6/uL (4.20-5.50); White Blood Count 6.6 X10*3/uL (4.8-10.8)
[2024-12-26 18:32] LABS: Mean Corpuscular Volume 123.1 fL (80.0-98.0)
[2024-12-26 18:36] LABS: Appearance Urine Clear; Glucose Urine UA Negative (Negative); PH 6.0 (5.0-9.0); Specific Gravity - Urine 1.020 (1.005-1.025)
[2024-12-26 18:40] LABS: Alanine Aminotransferase 30 U/L (0-31); Aspartate Amino Transferase 38 U/L (5-31); Estimated Glomerular Filt Rate > 60
[2024-12-26 18:50] LABS: Protein/Creatinine Ratio, Ur 0.10 (<0.2); Total Protein Urine Random 9 mg/dL (<12)
== END 2024-12-26 12:37 | disposition home or self-care (01) ==
LOC: HO.HKASLDS 12:36
PROVIDERS: PCP Internal Medicine; Visit Provider Internal Medicine Rheumatology
DX: I73.00 Raynaud's syndrome without gangrene (principal); M32.19 Other organ or system involvement in systemic lupus erythematosus; Z79.899 Other long term (current) drug therapy
CPT/HCPCS: 36415; 81001; 82565; 82570; 84156; 84450; 84460; 85025; 85652; 86140; 86160; 86225; 99212